=== PATIENT | female | born 1970 | race Caucasian/White ===

== ENCOUNTER 2021-10-09 05:15 | Day surgery (SDC) | payer OTHER ==
[2021-10-06 16:31] VITALS: BMI 31.9
[2021-10-09 11:45] VITALS: BP 126/73; PULSE 63; TEMP 96.4
== END 2021-10-09 11:25 | disposition home or self-care (01) ==
LOC: JASU-ENDO 05:15
PROVIDERS: ATTEND Internal Medicine Gastroenterology
PROC: 0DB98ZX Excision of Duodenum, Via Natural or Artificial Opening Endoscopic, Diagnostic (ICD-10-PCS; 2021-10-09)
PROC: 0DB68ZX Excision of Stomach, Via Natural or Artificial Opening Endoscopic, Diagnostic (ICD-10-PCS; 2021-10-09)
PROC: 0DJD8ZZ Inspection of Lower Intestinal Tract, Via Natural or Artificial Opening Endoscopic (ICD-10-PCS; principal; 2021-10-09 10:15)
DX: Z12.11 Encounter for screening for malignant neoplasm of colon (principal); K90.0 Celiac disease; K29.50 Unspecified chronic gastritis without bleeding; Z83.71 Family history of colonic polyps
CPT/HCPCS: 43239; G0105; 81025; 88305-TC; 88342-TC

== ENCOUNTER 2024-12-28 07:33 | Day surgery (SDC) | payer OTHER ==
[2024-12-27 12:57] VITALS: BMI 34.3
[2024-12-28 08:22] VITALS: TEMP 98
[2024-12-28 08:52] VITALS: RESP 18
[2024-12-28 09:11] VITALS: BP 116/59; PULSE 63
== END 2024-12-28 09:11 | disposition home or self-care (01) ==
LOC: JASU-ENDO 07:33
PROVIDERS: ATTEND Internal Medicine Gastroenterology
PROC: 0DB98ZX Excision of Duodenum, Via Natural or Artificial Opening Endoscopic, Diagnostic (ICD-10-PCS; 2024-12-28)
PROC: 0DJD8ZZ Inspection of Lower Intestinal Tract, Via Natural or Artificial Opening Endoscopic (ICD-10-PCS; principal; 2024-12-28 08:00)
DX: Z12.11 Encounter for screening for malignant neoplasm of colon (principal); K90.0 Celiac disease; Z80.0 Family history of malignant neoplasm of digestive organs
CPT/HCPCS: 88305-TC